=== PATIENT | female | born 1955 | race Caucasian/White ===

== ENCOUNTER 2025-03-02 11:08 | Day surgery (SDC) | payer MEDICARE, BC ==
[~2025-03-02] VITALS: Ht 165.1 cm; Wt 112.2 kg
[~2025-03-02 11:08] MED LIST: Lidocaine HCl 2% 10 ML SDA ONE
[2025-03-02] MEDS ORDERED: CeFAZolin Sodium 2,000 MG VIAL ONE (11:15)
[2025-03-02] MEDS ORDERED: DULO30 PO (11:29)
[2025-03-02] MEDS ORDERED: PREG200 PO (11:29)
[2025-03-02] MEDS ORDERED: LEVOTHYROXINE100 M10 PO (11:30)
[2025-03-02] MEDS ORDERED: LOVA40 PO (11:30)
[2025-03-02] MEDS ORDERED: Lactated Ringer's 1,000 ML IV ONE ×2 (11:37→12:51)
[2025-03-02] MEDS ORDERED: FentaNYL Citrate 50 MCG/ML 2 ML Injection ONE (12:10)
[2025-03-02 13:17] VITALS: BP 128/76
--- NOTE | 2025-03-02 14:07 | NUR ---
03/02/25 1407 JONI ROGERS PT UP TO BATHROOM, WC USED. PT STATES THAT DR CASAS TOLD HER THAT SHE COULD ONLY WALK, (ON HER HEEL).
== END 2025-03-02 14:25 | disposition home or self-care (01) ==
LOC: ORSCSDS 11:08
PROVIDERS: Podiatrist Foot & Ankle Surgery
PROC: 0QBN0ZZ Excision of Right Metatarsal, Open Approach (ICD-10-PCS; principal; 2025-03-02 12:30)
DX: M21.621 Bunionette of right foot (principal); M89.8X7 Other specified disorders of bone, ankle and foot; E78.5 Hyperlipidemia, unspecified; Z79.899 Other long term (current) drug therapy; E07.9 Disorder of thyroid, unspecified; Z87.891 Personal history of nicotine dependence; Z68.41 Body mass index [BMI] 40.0-44.9, adult
CPT/HCPCS: A6253; J0690; J2003; J3010; J7120